=== PATIENT | female | born 1965 | race Caucasian/White ===

== ENCOUNTER 2022-01-03 06:36 | Outpatient (CLI) | payer OTHER, SELFPAY ==
--- NOTE | ~2022-01-03 | CT_ITS ---
EXAMINATION: XR abdomen/kub 1V, CT abdomen pelvis wo con DATE: 01/03/2022 07:09 INDICATION: Left flank pain TECHNIQUE: 1. Computed tomography (CT) of the abdomen and pelvis was performed without intravenous contrast. Aut omated exposure control and iterative reconstruction technique were employed. The dose-length product was 397.72 mGy-cm. 2. AP view of the abdomen and pelvis was obtained on 2 images. COMPARISON: None FINDINGS: CT: Mild dependent atelectasis in the bilateral lower lobes. Cluster of several calcified and noncalcifie d nodules at the left lung base, the largest noncalcified nodule measuring 5 mm, likely sequela of ol d granulomatous disease. Heart size is normal. Couple rim calcified gallstones in the otherwise wicho l-appearing nearly decompressed gallbladder with no wall thickening or pericholecystic inflammatory s tranding to suggest acute cholecystitis. Liver, pancreas and right adrenal gland are normal. 3.4 cm l ow-attenuation left adrenal adenoma. Punctate splenic calcification consistent with old granulomatous disease. Bilateral kidneys and ureters are normal with no urolithiasis, hydroureteronephrosis or per inephric/periureteral stranding. There are few small atherosclerotic calcific lesion along the bilate ral iliac arteries. Bladder, anteverted uterus and bilateral adnexa are unremarkable. There is mild c olonic diverticulosis with a sigmoid predominance. There is no adjacent inflammatory change to sugge st diverticulitis. No bowel obstruction. The appendix is not visualized. No pericecal inflammatory c hange to suggest acute appendicitis. No free intraperitoneal gas or fluid. No pathologically enlarged abdominal or pelvic lymphadenopathy. Mild lumbar levocurvature. Severe left-sided predominant disc h eight loss with Modic type III sclerotic endplate changes at T12-L1. Moderate spondylosis in the more cephalad thoracic and caudal lumbar spine including moderate to severe lumbar facet osteoarthritis. KUB: Normal bowel gas pattern. One of the atherosclerotic calcifications is evident in the left hemipelvis . No urolithiasis. Calcified nodule at the left lung base consistent with old granulomatous disease. IMPRESSION: 1. No urolithiasis or acute intra-abdominal/pelvic process. 2. Cholelithiasis. 4. 5 mm noncalcified left lower lobe nodule most likely sequela of old granulomatous disease. If the patient is low risk for lung cancer, no follow-up is needed. If the patient is high risk (i.e., hist ory of smoking or asbestos or significant radiation exposure), optional follow-up chest CT could be c onsidered at 12 months. Reviewed, dictated and finalized at location A. HOLOGIST EXPERIMENTAL IMPRESSION: 1. No urolithiasis or acute intra-abdominal/pelvic process. 2. Cholelithiasis. 4. 5 mm noncalcified left lower lobe nodule most likely sequela of old granulom atous disease. If the patient is low risk for lung cancer, no follow-up is nee ded. If the patient is high risk (i.e., history of smoking or asbestos or signi ficant radiation exposure), optional follow-up chest CT could be considered at 12 months.
== END 2022-01-03 06:37 | disposition home or self-care (01) ==
PROVIDERS: PCP Internal Medicine; Visit Provider Nurse Practitioner Family
DX: K80.20 Calculus of gallbladder without cholecystitis without obstruction (principal); R91.8 Other nonspecific abnormal finding of lung field
CPT/HCPCS: 74018; 74176

== ENCOUNTER 2024-05-17 14:17 | Outpatient (CLI) | payer OTHER, SELFPAY ==
--- NOTE | ~2024-05-17 | XR_ITS ---
XR knee RT 3V Ordering provider: Fabio Encinas MD History: . M25.561 - Pain in right knee . Comparison: July 18, 2021 FINDINGS: BONES: No acute fracture or dislocation. JOINT SPACES: Total knee arthroplasty. SOFT TISSUES: Normal. IMPRESSION: No acute osseous abnormality right knee. Total knee arthroplasty. Reviewed, dictated and finalized at location A.
== END 2024-05-17 14:18 | disposition home or self-care (01) ==
LOC: MICIMG 14:21
PROVIDERS: PCP Internal Medicine; Visit Provider Orthopaedic Surgery
DX: M25.561 Pain in right knee (principal)
CPT/HCPCS: 73562

== ENCOUNTER 2024-06-02 13:17 | Outpatient (CLI) | payer OTHER, SELFPAY ==
--- NOTE | ~2024-06-02 | MM_ITS ---
EXAMINATION: MM screening collette BI w beatriz HISTORY: Screening TECHNIQUE: Craniocaudal and mediolateral oblique 3-D tomosynthesis images were obtained and synthetic 2-D images were generated. CAD analysis was submitted and interpreted. COMPARISON: No prior mammogram is available for comparison at this institution. BREAST PARENCHYMAL COMPOSITION: Not Dense: The breasts are almost entirely fatty. FINDINGS: There is no evidence of suspicious mass, calcification, or architectural distortion to sugg est malignancy in either breast. There has been no suspicious interval change. IMPRESSION: 1. No mammographic evidence of malignancy. 2. Recommend routine screening mammography in one year. BI-RADS Category 1: Negative Reviewed, dictated and finalized at location A.
== END 2024-06-02 13:18 | disposition home or self-care (01) ==
LOC: MICIMG 13:17
PROVIDERS: PCP Internal Medicine; Visit Provider Internal Medicine
DX: Z12.31 Encounter for screening mammogram for malignant neoplasm of breast (principal)
CPT/HCPCS: 77063; 77067

== ENCOUNTER 2024-12-08 08:49 | Outpatient (CLI) | payer OTHER, SELFPAY ==
--- NOTE | ~2024-12-08 | CT_ITS ---
EXAMINATION:CT lung screening DATE: 12/08/2024 09:41 INDICATION: Tobacco use. Cigarette smoking. TECHNIQUE: Computed tomography (CT) of the chest was performed without intravenous contrast. Automated exposure control and iterative reconstruction technique were employed. The dose-length product (DLP) was 221.56 mGy-cm. COMPARISON: CT abdomen and pelvis 01/03/2022 FINDINGS: The lungs demonstrate mild atelectasis. There are stable 5 mm and 3 mm nodules in left lower lobe. Calcified left lung nodules and calcified left hilar and mediastinal lymph nodes are consistent with old granulomatous disease. No pleural effusion. The heart size is normal. No pericardial effusion. There are gallstones in the gallbladder, which is normal in size. There is a 3.1 cm mass in left adrenal gland measuring low attenuation, consistent with an adenoma. There are cervical spondylosis. There is severe spondylosis of thoracolumbar junction. IMPRESSION: 1. Lung-RADS category 2: Benign appearance or behavior. Continue annual screening with noncontrast low-dose chest CT in 12 months. Reviewed, dictated and finalized at location E. IMPRESSION: 1. Lung-RADS category 2: Benign appearance or behavior. Continue annual screeni ng with noncontrast low-dose chest CT in 12 months.
--- NOTE | ~2024-12-08 | DEXA_ITS ---
Bone Density Report Name: SAMSON CROCKETT Age: 59 Sex: Female Ethnicity: White Date of : 1965 Indication: postmenopausal; screening for osteoporosis; Referring Provider: RICKEY, SAMMY Study: Bone densitometry was performed. Exam Date: December 08, 2024 Accession number: [id number] Bone Density: Region BMD T-score Z-score Classification AP Spine(L2, L4) 1.125 0.4 1.9 Normal Femoral Neck (Left) 0.627 -2.0 -0.7 Osteopenia Total Hip (Left) 0.833 -0.9 0.1 Normal Femoral Neck (Right) 0.673 -1.6 -0.3 Osteopenia Total Hip (Right) 0.819 -1.0 -0.1 Normal Total Hip Mean 0.826 -1.0 0.0 Normal World Health Organization criteria for BMD impression classify patients as: Normal (T-score at or above -1.0), Osteopenia (T-score between -1.0 and -2.5), or Osteoporosis (T-score at or below -2.5). 10-year Fracture Risk(1): Major Osteoporotic Fracture 8.8% Hip Fracture 1.6% Reported Risk Factors: [place] (), Neck BMD=0.627, BMI=36.8, smoking (1) FRAX(R) Version 3.08. Fracture probability calculated for an untreated patient. Fracture probability may be lower if the patient has received treatment. Clinical Information Provided by Patient: Smokes Patient maximum height was 69 Drinks caffeinated beverages Onset of menses at age 12 Number of children 0 Impression: The patient has low bone mass, based on the Left Femoral Neck T-score. The patient has an estimated ten-year risk of hip fracture of 1.6% and an estimated ten-year risk of major fracture of 8.8%, based on the WHO FRAX algorithm. The patient has risk factors, including: smoking. Discussion: BONE DENSITY IS LOW AT ONE OR MORE SKELETAL SITES. This patient's lowest T-score is low at one or more skeletal sites. It meets the World Health Organization's (WHO) criteria for ?low bone mass? (T-score between -1.0 and -2.5). The patient's 10-year risk of fracture as calculated by FRAX is less than the threshold where pharmacological therapy is recommended by the National Osteoporosis Foundation (NOF). However, all treatment decisions require clinical judgment and consideration of individual patient factors, including patient preferences, comorbidities, previous drug use, risk factors not captured in the FRAX model (e.g., frailty, falls, vitamin D deficiency, increased bone turnover, interval significant decline in bone density) and possible under or overestimation of fracture risk by FRAX. The patient should follow a healthful lifestyle (good nutrition with adequate calcium and vitamin D, and appropriate weight-bearing exercise). Follow-Up: Consider repeating this study in 2 to 3 years to reassess this patient's status, or sooner if there is some new clinical indication. Reported by: NIKKI on 12/08/2024 9:38:00 AM. Reviewed, dictated and finalized at location A.
--- OUTSIDE RECORDS SUMMARY | 2024-12-08 09:41 | XMS_ITS | Clinical Summary ---
Author Organization [address] Address [address] [place] [id number] Care Team Providers Care Municipal Services Manager Name Role Phone Filomena Ha MD Primary Care Provide r Allergies Active Allergy Reactions Criticality Noted Date Comments Amoxicillin-Pot Clavulanate Diarrhea,Unknown Low 10/28/2017 Losartan Other (See comments) High 04/04/2022 Kidney function elevated Medications amLODIPine (NORVASC) 10 mg tablet amlodipine 10 mg tablet 3 Active cholecalciferol (VITAMIN D-3) 50,000 unit capsule Take 1 capsule (50,000 Units total) by mouth once a week Active amoxicillin 500 mg capsule Take 4 tablet/capsule (2,000 mg total) by mouth 3 Active cyanocobalamin (Vitamin B-12) 1,000 mcg/mL injection INJECT 1 ML UNDER THE SKIN ONCE WEEKLY IN THE MORNING Active estradioL (ESTRACE) 0.01 % (0.1 mg/gram) vaginal cream APPLY A SMALL AMOUNT TO OUTSIDE TISSUES NIGHTLY [id number], THEN NIGHTLY 2X PER WEEK THEREAFTER Active sertraline (ZOLOFT) 25 mg tablet Take 1 tablet (25 mg total) by mouth daily 3 Active albuterol HFA (PROVENTIL HFA,VENTOLIN HFA,PROAIR HFA) 90 mcg/actuation inhaler Inhale 2 puffs every 6 (six) hours as needed 9 Active clindamycin (CLEOCIN) 300 mg capsule Active HYDROcodone-alphonse taminophen (NORCO) 5-325 mg per tablet Active LORazepam (ATIVAN) 1 mg tablet Take 1 tablet (1 mg total) by mouth daily as needed Active naproxen (NAPROSYN) 500 mg tablet Take 1 tablet (500 mg total) by mouth 2 (two) times a day 3 Active neomycin-polymy fredrick-dexAMETHaso ne (MAXITROL) 3.5mg/mL-10,000 unit/mL-0.1 % ophthalmic suspension Active oxyCODONE-aceta minophen (PERCOCET) 5-325 mg per tablet Active TRUEplus Insulin 1 mL 31 gauge x 5/16 syringe 3 Active tobramycin-dexA METHasone (TOBRADEX) ophthalmic solution APPLY 1 DROP INTO RIGHT EYE THREE TIMES A DAY Active valACYclovir (VALTREX) 1 gram tablet Take 1 tablet 3 times a day by oral route for 7 days. Active dexAMETHasone (DECADRON) 1 mg tablet Take 1 tablet at 10 pm and go for labs next day 1 tablet 3 Active Active Problems Problem Noted Date Diagnosed Date Adrenal adenoma 12/26/2022 Assessment & Plan (12/26/2022 3:49 PM CDT): Will get report of CT done last year and this year. Will repeat hormonal workup including 1 mg dexamethasone suppression tests, DHEA-S and serum free metanephrine. With a year follow-up and no changes in the size or appearance of the adrenal nodule, this most likely represents a benign nonfunctional adenoma Further recommendations as I get more data including records and labs ordered today Surgical History Surgery Date Site/Laterality Comments KNEE ARTHROSCOPY Arthroscopy knee Medical History Medical History Date Comments Osteoarthritis Osteoarthritis; Comments: APO 03/16/2014 - Hx Other Medical lt partial knee replacement; Comments: APO 03/16/2014 - Hypertension Family History Medical History Relation Name Comments Coronary artery disease Other Fami ly history of Coronary artery disease; Hypertension Other Family history of Hypertension; Relation Name Status Comments Other Social History Tobacco Use Types Packs/Day Years Used Date Smoking Tobacco: Every Day Cigarettes Tobacco Cessation:Ready to Q uit: Not Asked; Counseling Given: Not Answered Comments Unknown Sex and Gender Information Value Date Recorded Sex Assigned at Not on file Legal Sex Female 8:10 PM [employer] WATCH[employer] Gender Identity Not on file Sexual Orientation Not on file Obstetrics History Last Filed Vital Signs Vital Sign Reading Time Taken Comments Blood Pressure 140/84 12/26/2022 12:03 PM CDT Pulse 75 12/26/2022 12:03 PM CDT Temperature - - Respiratory Rate - - Oxygen Saturation - - Inhaled Oxygen Concentration - - Weight 109.8 kg (242 lb) 12/26/2022 12:03 PM CDT Height 172.7 cm (5' 8) 12/26/2022 12:03 PM CDT Body Mass Index 36.8 12/26/2022 12:03 PM CDT Plan of Treatment Health Maintenance Due Date Last Done Comments Breast Cancer Screening-Mammogram 1965 Cervical Cancer Screening 1965 Colon Cancer Screening-Colonoscopy 1965 Depression Screening 1965 Hepatitis C Screening 1965 DTaP/Tdap/Td Vaccine (1 - Tdap) 10/03/1975 Hepatitis B Screening 1982 Regular Well Visit/Exam 18-64 1982 Pneumococcal vaccine <65 (1 of 2 - PCV) 10/03/1983 Zoster Vaccine (1 of 2) 2014 Covid-19 Vaccine (5 - 2024-2 6 season) 2024 12/14/2021, 12/04/2020, 05/12/2020, Additional history exists Influenza Vaccine (#1) 2024 2, 12/03/2021, 12/04/2020, Additional history exists Insurance [facility] Address: [facility] [address] [place] [address] [facility] CHOICE PLUS [facility] Address: [facility] [id number] [place] [id number] Care Teams Municipal Services Manager Relationship Specialty Start Date End Date Filomena Ha MD [address] [id number] PCP - General Internal Medicine 11/12/22
--- OUTSIDE RECORDS SUMMARY | 2024-12-08 09:41 | XMS_ITS | Clinical Summary ---
Author Organization [facility] Address [address] [place] [address] Care Team Providers Care Forensic Pathologist Name Role Phone Franco Ha MD Primary Care Provider Source Comments [facility],non-owned Affiliates and Associated Physician Practices is amultiple site organization consisting of ambulatory clinics and hospital sitesin [place], [place], [place] and [place]. This disclosure is being madepursuant to the Care Everywhere program and may not contain all information available regarding this patient. Last updated 17.[facility] Allergies Active Allergy Reactions Criticality Noted Date Comments Amoxicillin-Pot Clavulanate Diarrhea,Unknown Low 10/28/2017 Amoxicillin-Pot Clavulanate Diarrhea 10/28/2017 Losartan Other High 04/04/2022 Kidney function elevated Medications * Be aware that medications may not be up to date on this document. Alwaysverify current medications with the patient. albuterol HFA (PROVENTIL;VENT RITA;PROAIR) 108 (90 Base) MCG/ACT inhaler Inhale 2 puffs by mouth every 6 hours as needed 3 Inhaler 3 9 Active estradiol (Estrace) 0.1 MG/GM vaginal cream APPLY A SMALL AMOUT TO OUTSIDE TISSUES NIGHTLY X 14 DAYS, THEN NIGHTLY 2X PER WEEK THEREAFTER 2 Active cyanocobalamin (Vitamin B-12) injection INJECT 1 ML EVERY WEEK BY SUBCUTANEOUS ROUTE IN THE MORNING FOR 90 DAYS. 3 Active amLODIPine (Norvasc) 10 MG tablet Take 1 (one) tablet by mouth once daily Active TRUEplus Insulin Syringe 31G X 16 1 ML syringe USE WITH B-12 INJECTIONS ONCE WEEKLY 3 Active LORazepam (Ativan) 1 MG tablet Take 1 (one) tablet by mouth once daily as needed Active amoxicillin (Amoxil) 500 MG capsule Take 4 (four) capsules by mouth 1 Hour prior to Dental Appointment 4 capsule 11 3 Active acetaminophen (Tylenol) 325 MG tablet 3 Active Cholecalciferol (vitamin D3) 1.25 MG (91868 UT) capsule Take 1 (one) capsule by mouth 3 Active ibuprofen (IBU-200) 200 MG tablet 3 Active LORazepam (Ativan) 1 MG tablet Take 1 (one) tablet by mouth once daily as needed Active sertraline (Zoloft) 25 MG tablet Take 1 (one) tablet by mouth once daily 3 Active Active Problems Problem Noted Date Diagnosed Date Presence of right artificial knee joint 03/28/19 Menopausal syndrome 11/26/2022 03/28/2023 Anxiety 11/13/2022 03/28/2023 Snoring 10/03/2022 10/29/2022 Adenoma of left adrenal gland 06/15/2022 Smoker 04/04/2022 07/17/2022 Vitamin D deficiency 03/06/2022 09/11/2022 Essential (primary) hypertension 11/29/2021 07/17/2022 Primary osteoarthritis of right knee 11/20/2021 Social History Tobacco Use Types Packs/Day Years Used Date Smoking Tobacco: Every Day Cigarettes 0.5 30 Smokeless Tobacco: Never Tobacco Cessation:Ready to Q uit: Not Asked; Counseling Given: Not Answered Alcohol Use Standard Drinks/Week Comments Not Currently 0 (1 standard drink = 0.6 oz pur e alcohol) OASIS D0700: Social Isolation Answer Da te Recorded Frequency of experiencing loneliness or isolatio n Never 08/15/2022 OASIS A1250: Transportation Answer Date Recorded Lack of Transportation (Medical) No 08/15/2022 Lack of Transportation (Non-Medical) No 08/15/2022 Patient Unable or Declines to Respond No 08/15/2022 OASIS B1300: Health Literacy Answer Kory e Recorded Frequency of needing help to read materials from doctor or pharmacy Never 08/15/2022 Comments No Sex and Gender Information Value Date Recorded Sex Assigned at Not on file Legal Sex Female 12:17 PM CDT Gender Identity Not on file Sexual Orientation Not on file Last Filed Vital Signs Vital Sign Reading Time Taken Comments Blood Pressure 148/88 08/15/2022 2:42 PM CDT Pulse 86 08/15/2022 2:42 PM CDT Temperature 36.6 C (97.8 F) 08/15/2022 2:42 PM CDT Respiratory Rate 18 08/15/2022 2:42 PM CDT Oxygen Saturation 98% 08/15/2022 2:42 PM CDT Inhaled Oxygen Concentration - - Weight 102.7 kg (226 lb 6.4 oz) 07/31/2022 7:10 AM CDT Height 172.7 cm (5' 8) 07/31/2022 7:10 AM CDT Body Mass Index 34.42 07/31/2022 7:10 AM CDT Plan of Treatment Health Maintenance Due Date Last Done Comments COLOGUARD (AGES 45-75) - COLON CA SCREENING 1964 COLON MONITORING 1964 COLONOSCOPY - COLON CA SCREENING 1964 CT COLONOGRAPHY - COLON CA SCREENING 1964 Colorectal Cancer Screening 1964 FIT - COLON CA SCREENING 1964 FLEX SIG - COLON CA SCREENING 1964 LIPID TESTING 1964 MAMMOGRAM 1964 HIV SCREENING 10/03/1979 HEPATITIS C SCREENING 09/28/1982 DTAP/TDAP/TD VACCINES (1 - Tdap) 10/03/1983 PNEUMOCOCCAL VACCINE 50+ (1 of 2 - PCV) 10/03/1983 PAP SMEAR 1985 ZOSTER VACCINE (1 of 2) 2014 DEPRESSION SCREENING 02/25/2024 COVID-19 VACCINE ( - 2024- season) 2024 12/04/2020, 05/12/2020, 04/21/2020 INFLUENZA VACCINE (#1) 2024 , 12/03/2021, 12/04/2020, Additional history exists SCREENING FOR DIABETES 06/21/2025 06/21/2022, 2021 Respiratory Syncytial Virus (RSV) Vaccine Pt: or over 60 yrs (1 - 1-dose 75+ series) 10/03/2039 HEPATITIS B VACCINE Aged Out No longe r eligible based on patient's age to complete this topic HIB VACCINE Aged Out No longer eligi ble based on patient's age to complete this topic HPV VACCINE Aged Out No longer eligi ble based on patient's age to complete this topic MENINGOCOCCAL (Group B) VACCINE SHARED DECISION-MAKING Aged Out No longer eligible based on patient's age to complete this topic MENINGOCOCCAL GROUPS A/C/Y/W VACCINE Aged Out No longer eligible based on patient's age to complete this topic Medical Devices Implanted Type Area Farmworker Device Identifier Shelf Expiration Date Model / Serial / Lot Cmnt Bone Plc R 40gm Grn Implanted:Qty: 1 on 07/31/2022 by Colton Candelario MD at [facility] Right: Knee [employer] 08/23/2024 [id number] / / [id number] Cmpnt Fem Kn Rt Cr Cmnt Prm Vngrd Intlk Implanted:Qty: 1 on 07/31/2022 by Colton Candelario MD at [facility] Right: Knee [employer] 06/19/2032 [id number] / / [id number] Tray Tib 75mm Kn Cocr I Beam Implanted:Qty: 1 on 07/31/2022 by Colton Candelario MD at [facility] Right: Knee [employer] 06/21/2032 [id number] / / [id number] Cmpnt Ptlr Std 28mm 3 Pg Kn Ser A Implanted:Qty: 1 on 07/31/2022 by Colton Candelario MD at [facility] Right: Knee [employer] 06/07/2027 [id number] / / [id number] Brng [id number] Vngrd Arcm Kn Ant Stab Implanted:Qty: 1 on 07/31/2022 by Colton Candelario MD at [facility] Right: Knee [employer] 04/08/2027 [id number] / / [id number] Procedures Procedure Name Priority Date/Time Associated Diagnosis Comments COMPREHENSIVE METABOLIC PANEL STAT 06/21/2022 8:49 AM CDT Preoperative examination from Last 3 Months or Most Recently Relevant to Health Maintenance Results * (ABNORMAL) COMPREHENSIVE METABOLIC PANEL (06/21/2022 8:49 AM CDT) Glucose 93 70 - 105 mg/dL 06/21/2022 9:18 AM CDT [facility] Sodium 143 136 - 145 mmol/L 06/21/2022 9:18 AM CDT [facility] Potassium 4.4 3.5 - 5.1 mmol/L 06/21/2022 9:18 AM CDT [facility] Chloride 110(H) 98 - 107 mmol/L 06/21/2022 9:18 AM CDT [facility] CO2 26 23 - 31 mmol/L 06/21/2022 9:18 AM CDT [facility] Calcium 9.4 8.4 - 10.4 mg/dL 06/21/2022 9:18 AM CDT [facility] Anion Gap 7(L) 8 - 18 mmol/L 06/21/2022 9:18 AM CDT [facility] BUN 16 9.8 - 20.1 mg/dL 06/21/2022 9:18 AM CDT [facility] Creatinine 0.78 0.57 - 1.11 mg/dL 06/21/2022 9:18 AM CDT [facility] Alkaline Phosphatase 124 40 - 150 U/L 06/21/2022 9:18 AM CDT [facility] ALT 11 0 - 61 U/L 06/21/2022 9:18 AM CDT [facility] AST 15 5 - 34 U/L 06/21/2022 9:18 AM CDT [facility] Protein Total 6.7 6.4 - 8.3 gm/dL 06/21/2022 9:18 AM CDT [facility] Albumin 3.8 3.5 - 5.2 gm/dL 06/21/2022 9:18 AM CDT [facility] Bilirubin Total 0.3 0.2 - 1.2 mg/dL 06/21/2022 9:18 AM CDT [facility] eGFR by CKD-EPI 89(L) >=90 mL/min/1.7 3 m2 06/21/2022 9:18 AM CDT [facility] Blood BLOOD SPECIMEN / Unknown Venipuncture / Unknown 06/21/2022 8:49 AM CDT 06/21/2022 8:56 AM CDT aLura Boyd RN [facility]IOLOG[facility] - CHEMISTRY JOSÉ MANUEL VAZQUEZ Final Result [facility] [address] [place] [address] from Last 3 Months or Most Recently Relevant to Health Maintenance Insurance [facility] Advance Directives * Full Code (Latest Code Status on File) Date Activated Date Inactivated Comments 07/31/2022 11:23 AM 08/01/2022 3:05 PM Care Teams Forensic Pathologist Relationship Specialty Start Date End Date Franco Ha MD [address] [facility] [address] [place] [address] PCP - General Internal Medicine 11/28/21
== END 2024-12-08 08:50 | disposition home or self-care (01) ==
PROVIDERS: PCP Internal Medicine; Visit Provider Internal Medicine
DX: Z12.2 Encounter for screening for malignant neoplasm of respiratory organs (principal); Z13.820 Encounter for screening for osteoporosis; F17.210 Nicotine dependence, cigarettes, uncomplicated; M85.852 Other specified disorders of bone density and structure, left thigh; M85.851 Other specified disorders of bone density and structure, right thigh
CPT/HCPCS: 71271; 77080